=== PATIENT | female | born 1970 | race Caucasian/White ===

== ENCOUNTER 2018-04-30 10:39 | Inpatient (IN) | payer BC, OTHER ==
[~2018-04-30] VITALS: Ht 152.4 cm; Wt 46.1 kg
[~2018-04-30 10:39] MED LIST: ATEN100T; ATEN50TA41 PO; ATOR10TA PO; BUPR150T73 PO; BUPR174T; FURO20TA3 PO; GABA100C PO; INDA1.25; INSU100C5; INSU100C5 SQ-INSULIN; INSU100V8; LISI-167; LISI-170 PO; METO10TA2 PO; PANT40TA5 PO; SERT50TA28 PO
--- NOTE | 2018-04-30 10:53 | NUR ---
FSBS 159 IN TRIAGE
[2018-04-30] MEDS ORDERED: SODIUM CHLORIDE 0.9% 1,000 ML IV ONE ×2 (11:12→13:50)
--- NOTE | 2018-04-30 11:19 | NUR ---
AMBULATORY TO ED. C/O RUQ STARTED 299 TODAY, DRY HEJULES. TOOK PHENERGAN AT 299 TODAY. DENIES URINARY SX. LAST ORAL INTAKE: 1899 LAST NOC. LAST BM YESTERDAY. SPOUSE IN ROOM. PT DRY CADLERONNG, HAS EMPTY EMESIS BAG. SIDE RAILS UP X 1, CALL LIGHT W/IN REACH. Addendum: 04/30/18 at 1142 by MAGNOLIA PT NOTIFIED OF NEED FOR URINE SPECIMEN.
[2018-04-30] MEDS ORDERED: PROMETHAZINE 25 MG/ML, 1ML ONE (11:23)
[2018-04-30] MEDS ORDERED: SODIUM CHLORIDE FLUSH 10ML SYR IVF ONE (11:30)
[2018-04-30] MEDS ORDERED: SODIUM CHLORIDE 0.9% 1,000ML IVBOLUS ONE (11:30)
[2018-04-30] MEDS ORDERED: PROMETHAZINE 25 MG/ML, 1ML IM ONE (11:30)
--- NOTE | 2018-04-30 11:41 | NUR ---
EKG DONE. IV ATTEMPTED X 2
--- NOTE | 2018-04-30 11:44 | NUR ---
IV ASSISTANCE REQUESTED.
[2018-04-30 12:12] LABS: BASOPHILS # (AUTO) 0.12 x10^3/uL (0-0.1); BASOPHILS % (AUTO) 1 % (0-1); EOSINOPHILS # (AUTO) 0.39 x10^3/uL (0-0.4); EOSINOPHILS % (AUTO) 4 % (1-7); LYMPHOCYTES # (AUTO) 1.34 x10^3/uL (1-3.4); LYMPHOCYTES % (AUTO) 13 % (22-44); MD NO; MEAN CORPUSCULAR HEMOGLOBIN 30.2 pg (27.0-34.8); MEAN CORPUSCULAR HGB CONC 33.7 g/dL (32.4-35.8); MEAN CORPUSCULAR VOLUME 89.8 fL (80-100); MEAN PLATELET VOLUME 8.8 fL (7.4-10.4); MONOCYTES # (AUTO) 0.76 x10^3/uL (0.2-0.8); MONOCYTES % (AUTO) 7 % (2-9); NEUTROPHILS # (AUTO) 8.08 x10^3/uL (1.8-6.8); NEUTROPHILS % (AUTO) 76 % (42-75); PLATELET COUNT 231 x10^3/uL (130-400); RED CELL DISTRIBUTION WIDTH 14.3 % (9.6-15.2)
[2018-04-30] MEDS ORDERED: KETOROLAC 30 MG/1 ML ONE (12:19)
[2018-04-30 12:21] LABS: ALANINE AMINOTRANSFERASE 27 U/L (12-78); ALBUMIN 4.2 g/dL (3.4-5.0); ANION GAP 7 mmol/L (5-15); CALCIUM 9.4 mg/dL (8.5-10.1); CHLORIDE 107 mmol/L (98-107)
[2018-04-30 12:24] LABS: ALKALINE PHOSPHATASE 102 U/L (45-117); BILIRUBIN,TOTAL 0.5 mg/dL (0.2-1.0); TOTAL PROTEIN 7.5 g/dL (6.4-8.2)
[2018-04-30] MEDS ORDERED: KETOROLAC 30 MG/1 ML IVPush ONE (12:30)
--- NOTE | 2018-04-30 12:50 | NUR ---
PT REPORTS MINIMAL IMPROVEMENT IN NAUSEA - NOTICEABLE ABSENCE OF DRY HEAVING NOTED. PT REFUSED PRIOR ORDER OF TORADOL. STATES "THEY USUALLY GIVE ME MORPHINE" (AT [facility]).
--- NOTE | 2018-04-30 12:59 | NUR ---
AMBULATORY TO & FROM BR W/OUT INCIDENT, ACCOMPANIED BY SPOUSE. BRIGHT YELLOW URINE SPECIMEN PROVIDED BY PT. PT STATES SHE HAD AN EYE EXAM YESTERDAY, WAS GIVEN A MEDICATION THAT TURNED HER URINE BRIGHT YELLOW.
[2018-04-30] MEDS ORDERED: ONDANSETRON 2MG/ML, 2ML ONE (13:07)
[2018-04-30] MEDS ORDERED: MORPHINE SULFATE 4 MG/ML, 1ML ONE (13:07)
--- NOTE | 2018-04-30 13:15 | NUR ---
FIRST LITER NS INFUSED; 2ND LITER HUNG, RATE 250ML/HR; ZOFRAN AND MORPHINE GIVEN PER EMAR. IV SITE PATENT. PT RESTING ON BED W/ SIDE RAILS UP X2, CALL LIGHT W/IN REACH. SPOUSE & DAUGHTER IN ROOM.
--- NOTE | 2018-04-30 13:18 | NUR ---
O2 APPLIED 1LNC FOR DECREASED O2 SAT. WILL TITRATE.
[2018-04-30 13:29] LABS: ACETONE, SERUM Trace (10mg/dL) mg/dL (Negative)
[2018-04-30] MEDS ORDERED: ONDANSETRON 2MG/ML, 2ML IVPush ONE (13:30)
[2018-04-30] MEDS ORDERED: MORPHINE SULFATE 4 MG/ML, 1ML IVPush PRN (13:30)
[2018-04-30 13:33] LABS: MICROSCOPIC INDICATED
[2018-04-30 13:37] LABS: CULTURE INDICATED? YES
[2018-04-30] MEDS ORDERED: CEFTRIAXONE PMX 1GM/50ML 50 ML IV ONE (14:00)
[2018-04-30] MEDS ORDERED: SODIUM CHLORIDE FLUSH 10ML SYR IVF PRN (14:00)
--- NOTE | 2018-04-30 14:18 | NUR ---
PT VOMITED YELLOW FLUID INTO EMESIS BAG. C/O CONTINUING NAUSEA. IV INFUSING; SITE PATENT. PT TO BE ADMITTED.
--- NOTE | 2018-04-30 14:26 | NUR ---
PT REPORT TO INOCENCIO SCOTT FOR ROOM 366
[2018-04-30] MEDS ORDERED: LABETALOL 5MG/ML, 20ML IVPush PRN (15:00)
[2018-04-30] MEDS ORDERED: POLYETHYLENE GLYCOL 17 GM PACKET PO PRN (15:00)
[2018-04-30] MEDS ORDERED: DEXTROSE 50%, 50ML SYRINGE IVPush PRN (15:00)
[2018-04-30] MEDS ORDERED: GLUCAGON 1 MG IM PRN (15:00)
[2018-04-30] MEDS ORDERED: BISACODYL 10 MG SUPP PR PRN (15:00)
[2018-04-30] MEDS ORDERED: hydrALAzine 20 MG/ML, 1ML IVPush PRN (15:00)
[2018-04-30] MEDS ORDERED: ACETAMINOPHEN 325 MG TABLET PO PRN (15:00)
[2018-04-30] MEDS ORDERED: DOCUSATE 100 MG CAPSULE PO PRN (15:00)
[2018-04-30] MEDS: HEPARIN 5,000 UNITS/ML, 1ML SQ SCH ×2 (15:28→23:29)
[2018-04-30] MEDS: SERTRALINE 50MG TABLET PO SCH ×2 (15:29→21:00)
[2018-04-30] MEDS: GABAPENTIN 100 MG CAPSULE PO SCH ×2 (15:29→21:00)
[2018-04-30] MEDS ORDERED: CEFTRIAXONE PMX 1GM/50ML 50 ML IV SCH (15:30)
[2018-04-30] MEDS ORDERED: LABETALOL 5 MG/ML SYRINGE IVPush PRN (15:30)
[2018-04-30 15:41] LABS: TROPONIN I < 0.015 ng/mL (0.000-0.045)
[2018-04-30 15:45] LABS: HEMOGLOBIN A1C 7.5 % (4.2-6.3)
[2018-04-30 15:59] VITALS: BP 191/94
[2018-04-30] MEDS ORDERED: METOCLOPRAMIDE 10MG TABLET PO SCH (16:00)
[2018-04-30 16:04] LABS: THYROID STIMULATING HORMONE 2.15 mIU/L (0.358-3.740)
[2018-04-30 16:05] VITALS: BP 189/88
[2018-04-30 17:24] VITALS: BP 182/82
[2018-04-30] MEDS: PROMETHAZINE 25 MG/ML, 1ML IM PRN ×3 (17:30→23:36)
[2018-04-30] MEDS: INSULIN LISPRO 100 UNITS/ML, PEN SQ-INSULIN SCH ×2 (17:36→19:55)
[2018-04-30] MEDS: morphine SULFATE 10 MG/ML, 1ML IVPush PRN ×2 (19:42→23:29)
[2018-04-30] MEDS: ONDANSETRON ODT 4 MG PO PRN (19:42)
[2018-04-30] MEDS: SODIUM CHLORIDE FLUSH 10ML SYR IVF SCH (20:38)
[2018-04-30] MEDS: SODIUM CHLORIDE 0.9% 1,000 ML IV SCH (20:38)
[2018-04-30 20:49] VITALS: BP 172/83
[2018-04-30] MEDS: BUPROPION SR 150 MG TABLET PO SCH (21:00)
[2018-04-30 22:17] VITALS: BP 127/55
[2018-04-30] MEDS: ATORVASTATIN 10 MG TABLET PO SCH (22:24)
[2018-04-30 22:44] VITALS: BP 143/76
[2018-05-01 01:31] VITALS: BP 144/73
[2018-05-01] MEDS: PROMETHAZINE 25 MG/ML, 1ML IM PRN ×2 (02:38→05:36)
[2018-05-01] MEDS: morphine SULFATE 10 MG/ML, 1ML IVPush PRN ×5 (02:39→20:18)
[2018-05-01] MEDS: GABAPENTIN 100 MG CAPSULE PO SCH ×4 (05:35→20:18)
[2018-05-01 05:47] LABS: BASOPHILS # (AUTO) 0.04 x10^3/uL (0-0.1); BASOPHILS % (AUTO) 0 % (0-1); EOSINOPHILS % (AUTO) 0 % (1-7); LYMPHOCYTES # (AUTO) 0.48 x10^3/uL (1-3.4); LYMPHOCYTES % (AUTO) 5 % (22-44); MD NO; MEAN CORPUSCULAR HEMOGLOBIN 30.4 pg (27.0-34.8); MEAN CORPUSCULAR HGB CONC 34.2 g/dL (32.4-35.8); MEAN CORPUSCULAR VOLUME 88.9 fL (80-100); MEAN PLATELET VOLUME 9.4 fL (7.4-10.4); MONOCYTES # (AUTO) 0.45 x10^3/uL (0.2-0.8); MONOCYTES % (AUTO) 5 % (2-9); NEUTROPHILS # (AUTO) 7.98 x10^3/uL (1.8-6.8); NEUTROPHILS % (AUTO) 89 % (42-75); PLATELET COUNT 225 x10^3/uL (130-400); RED BLOOD COUNT 3.96 x10^6/uL (3.82-5.3); RED CELL DISTRIBUTION WIDTH 14.3 % (9.6-15.2)
[2018-05-01 05:56] LABS: ANION GAP 10 mmol/L (5-15); CALCIUM 8.7 mg/dL (8.5-10.1); CHLORIDE 108 mmol/L (98-107)
[2018-05-01 06:00] LABS: ALANINE AMINOTRANSFERASE 388 U/L (12-78); ALKALINE PHOSPHATASE 142 U/L (45-117); BILIRUBIN,TOTAL 0.5 mg/dL (0.2-1.0); CREATININE 1.51 mg/dL (0.55-1.02); TOTAL PROTEIN 7.1 g/dL (6.4-8.2)
[2018-05-01] MEDS: INSULIN LISPRO 100 UNITS/ML, PEN SQ-INSULIN SCH ×4 (07:00→20:19)
[2018-05-01 07:15] VITALS: BP 109/61
[2018-05-01] MEDS ORDERED: PANTOPRAZOLE 40 MG IV IVPush SCH (07:30)
[2018-05-01] MEDS: HEPARIN 5,000 UNITS/ML, 1ML SQ SCH ×2 (08:52→17:36)
[2018-05-01] MEDS: SERTRALINE 50MG TABLET PO SCH ×3 (08:52→20:18)
[2018-05-01] MEDS: ATENOLOL 50 MG TABLET PO SCH (08:52)
[2018-05-01] MEDS: BUPROPION SR 150 MG TABLET PO SCH ×2 (08:52→20:18)
[2018-05-01] MEDS: LISINOPRIL 20 MG TABLET PO SCH (08:52)
[2018-05-01] MEDS ORDERED: CEFTRIAXONE 1,000 MG IV SCH (09:00)
[2018-05-01] MEDS: SODIUM CHLORIDE 0.9% 1,000 ML IV SCH (10:51)
[2018-05-01] MEDS: SODIUM CHLORIDE FLUSH 10ML SYR IVF SCH ×2 (10:51→20:19)
[2018-05-01 13:30] VITALS: BP 129/70
[2018-05-01 20:00] VITALS: BP 138/66
[2018-05-01] MEDS: ATORVASTATIN 10 MG TABLET PO SCH (20:18)
[2018-05-02] MEDS: SODIUM CHLORIDE 0.9% 1,000 ML IV SCH ×2 (01:03→22:40)
[2018-05-02 01:40] VITALS: BP 146/66
[2018-05-02] MEDS: HEPARIN 5,000 UNITS/ML, 1ML SQ SCH ×3 (02:23→16:54)
[2018-05-02 04:45] VITALS: BP 167/87
[2018-05-02] MEDS: DEXTROSE 4 GM TAB.CHEW PO PRN ×2 (04:56→05:15)
[2018-05-02 05:13] LABS: CALCIUM 8.7 mg/dL (8.5-10.1); CHLORIDE 111 mmol/L (98-107)
[2018-05-02 05:19] LABS: ALANINE AMINOTRANSFERASE 236 U/L (12-78); ALBUMIN 3.7 g/dL (3.4-5.0); ALKALINE PHOSPHATASE 123 U/L (45-117); ANION GAP 6 mmol/L (5-15); BILIRUBIN,TOTAL 0.3 mg/dL (0.2-1.0); TOTAL PROTEIN 6.8 g/dL (6.4-8.2)
[2018-05-02] MEDS: PANTOPROZOLE 40MG TABLET PO SCH (06:03)
[2018-05-02] MEDS: GABAPENTIN 100 MG CAPSULE PO SCH ×4 (06:03→21:00)
[2018-05-02] MEDS: morphine SULFATE 10 MG/ML, 1ML IVPush PRN (06:17)
[2018-05-02] MEDS ORDERED: POTASSIUM CHLORIDE 40 MEQ in SODIUM CHLORIDE 0.9% 500 ML IV ONE (06:30)
[2018-05-02] MEDS: PROMETHAZINE 25 MG/ML, 1ML IM PRN ×4 (06:55→21:28)
[2018-05-02] MEDS: INSULIN LISPRO 100 UNITS/ML, PEN SQ-INSULIN SCH ×4 (07:00→21:00)
[2018-05-02] MEDS: ONDANSETRON ODT 4 MG PO PRN (07:49)
[2018-05-02] MEDS ORDERED: PROMETHAZINE 25 MG/ML, 1ML IM ONE (08:30)
[2018-05-02 08:41] VITALS: BP 205/93
[2018-05-02] MEDS: LISINOPRIL 20 MG TABLET PO SCH (09:00)
[2018-05-02] MEDS: BUPROPION SR 150 MG TABLET PO SCH ×2 (09:00→21:00)
[2018-05-02] MEDS: ATENOLOL 50 MG TABLET PO SCH (09:00)
[2018-05-02] MEDS: SERTRALINE 50MG TABLET PO SCH ×3 (09:00→21:00)
[2018-05-02] MEDS: SODIUM CHLORIDE FLUSH 10ML SYR IVF SCH ×2 (11:40→20:51)
[2018-05-02 14:15] VITALS: BP 211/107
[2018-05-02] MEDS: CALCIUM CARBONATE 500 MG TAB.CHEW PO PRN ×2 (14:38→21:25)
[2018-05-02] MEDS ORDERED: PROCHLORPERAZINE 5 MG/ML, 2ML IV PRN (16:30)
[2018-05-02 18:49] VITALS: BP 167/78
[2018-05-02] MEDS: ATORVASTATIN 10 MG TABLET PO SCH (21:00)
[2018-05-03] MEDS: HEPARIN 5,000 UNITS/ML, 1ML SQ SCH ×3 (02:00→17:14)
[2018-05-03 02:28] VITALS: BP 150/67
[2018-05-03] MEDS: PROMETHAZINE 25 MG/ML, 1ML IM PRN ×6 (03:20→23:43)
[2018-05-03] MEDS: CALCIUM CARBONATE 500 MG TAB.CHEW PO PRN ×3 (03:30→20:25)
[2018-05-03] MEDS: PANTOPROZOLE 40MG TABLET PO SCH (05:22)
[2018-05-03] MEDS ORDERED: MAALOX/HYOSCYAMINE/LIDOCAINE 45 ML BTL PO ONE ×3 (06:00→23:30)
[2018-05-03] MEDS: GABAPENTIN 100 MG CAPSULE PO SCH ×4 (06:00→21:00)
[2018-05-03 06:24] LABS: ALBUMIN 3.6 g/dL (3.4-5.0); ANION GAP 7 mmol/L (5-15); CALCIUM 9.1 mg/dL (8.5-10.1); CHLORIDE 109 mmol/L (98-107)
[2018-05-03 06:27] LABS: ALANINE AMINOTRANSFERASE 142 U/L (12-78); ALKALINE PHOSPHATASE 111 U/L (45-117); BILIRUBIN,TOTAL 0.8 mg/dL (0.2-1.0); CREATININE 1.38 mg/dL (0.55-1.02); TOTAL PROTEIN 6.4 g/dL (6.4-8.2)
[2018-05-03] MEDS ORDERED: POTASSIUM CHLORIDE 60 MEQ in SODIUM CHLORIDE 0.9% 500 ML IV ONE (06:30)
[2018-05-03] MEDS: INSULIN LISPRO 100 UNITS/ML, PEN SQ-INSULIN SCH ×4 (07:00→21:00)
[2018-05-03 07:37] VITALS: BP 149/68
[2018-05-03] MEDS: ATENOLOL 50 MG TABLET PO SCH (08:14)
[2018-05-03] MEDS: BUPROPION SR 150 MG TABLET PO SCH ×2 (08:14→21:00)
[2018-05-03] MEDS: SERTRALINE 50MG TABLET PO SCH ×3 (08:14→21:00)
[2018-05-03] MEDS: LISINOPRIL 20 MG TABLET PO SCH (08:15)
[2018-05-03] MEDS: METOCLOPRAMIDE 10MG TABLET PO PRN ×3 (08:40→23:41)
[2018-05-03] MEDS: SODIUM CHLORIDE FLUSH 10ML SYR IVF SCH (09:22)
[2018-05-03 14:39] VITALS: BP 140/65
[2018-05-03] MEDS: SODIUM CHLORIDE 0.9% 1,000 ML IV SCH (16:49)
[2018-05-03 18:56] VITALS: BP 186/90
[2018-05-03] MEDS: ATORVASTATIN 10 MG TABLET PO SCH (21:00)
[2018-05-04 00:55] VITALS: BP 191/98
[2018-05-04] MEDS: SODIUM CHLORIDE FLUSH 10ML SYR IVF SCH ×2 (00:59→08:19)
[2018-05-04] MEDS: HEPARIN 5,000 UNITS/ML, 1ML SQ SCH ×2 (02:00→08:20)
[2018-05-04] MEDS: GABAPENTIN 100 MG CAPSULE PO SCH ×3 (06:29→16:33)
[2018-05-04] MEDS: PANTOPROZOLE 40MG TABLET PO SCH (06:29)
[2018-05-04] MEDS: METOCLOPRAMIDE 10MG TABLET PO PRN (06:29)
[2018-05-04 07:57] VITALS: BP 147/77
[2018-05-04 08:00] LABS: BASOPHILS # (AUTO) 0.09 x10^3/uL (0-0.1); BASOPHILS % (AUTO) 1 % (0-1); EOSINOPHILS # (AUTO) 0.03 x10^3/uL (0-0.4); EOSINOPHILS % (AUTO) 0 % (1-7); LYMPHOCYTES # (AUTO) 2.07 x10^3/uL (1-3.4); LYMPHOCYTES % (AUTO) 18 % (22-44); MD NO; MEAN CORPUSCULAR HEMOGLOBIN 29.3 pg (27.0-34.8); MEAN CORPUSCULAR HGB CONC 32.8 g/dL (32.4-35.8); MEAN CORPUSCULAR VOLUME 89.6 fL (80-100); MEAN PLATELET VOLUME 8.8 fL (7.4-10.4); MONOCYTES # (AUTO) 1.06 x10^3/uL (0.2-0.8); MONOCYTES % (AUTO) 9 % (2-9); NEUTROPHILS # (AUTO) 8.13 x10^3/uL (1.8-6.8); NEUTROPHILS % (AUTO) 72 % (42-75); PLATELET COUNT 277 x10^3/uL (130-400); RED BLOOD COUNT 4.33 x10^6/uL (3.82-5.3); RED CELL DISTRIBUTION WIDTH 14.3 % (9.6-15.2)
[2018-05-04 08:09] LABS: ALBUMIN 3.7 g/dL (3.4-5.0); ANION GAP 4 mmol/L (5-15); CALCIUM 8.9 mg/dL (8.5-10.1); CHLORIDE 110 mmol/L (98-107)
[2018-05-04] MEDS: INSULIN LISPRO 100 UNITS/ML, PEN SQ-INSULIN SCH ×3 (08:12→16:00)
[2018-05-04 08:13] LABS: ALANINE AMINOTRANSFERASE 107 U/L (12-78); ALKALINE PHOSPHATASE 111 U/L (45-117); TOTAL PROTEIN 6.5 g/dL (6.4-8.2)
[2018-05-04] MEDS: ATENOLOL 50 MG TABLET PO SCH (08:18)
[2018-05-04] MEDS: SERTRALINE 50MG TABLET PO SCH ×2 (08:18→16:33)
[2018-05-04] MEDS: BUPROPION SR 150 MG TABLET PO SCH (08:18)
[2018-05-04] MEDS ORDERED: FUROSEMIDE 20 MG TABLET PO SCH (09:00)
[2018-05-04] MEDS ORDERED: LISINOPRIL 20 MG TABLET PO SCH (09:00)
[2018-05-04] MEDS: SODIUM CHLORIDE 0.9% 1,000 ML IV SCH (11:37)
[2018-05-04] MEDS ORDERED: METOCLOPRAMIDE 10MG TABLET PO PRN (12:30)
[2018-05-04 13:55] VITALS: BP 148/75
[2018-05-04] MEDS ORDERED: LISI-170 PO (16:01)
== END 2018-05-04 16:55 | disposition home or self-care (01) | DRG 74 ==
LOC: ED 12:16 → 3NE 14:58 → ED 15:23 → 3NE 15:25 → 4EST 18:37 → DCLOUNGE 05-04 16:45
PROVIDERS: ADMIT Hospitalist; ATTEND Hospitalist
DX: E10.43 Type 1 diabetes mellitus with diabetic autonomic (poly)neuropathy (principal); I13.0 Hypertensive heart and chronic kidney disease with heart failure and stage 1 through stage 4 chronic kidney disease, or unspecified chronic kidney disease; N17.9 Acute kidney failure, unspecified; E10.22 Type 1 diabetes mellitus with diabetic chronic kidney disease; E10.65 Type 1 diabetes mellitus with hyperglycemia; E86.0 Dehydration; R11.2 Nausea with vomiting, unspecified; F12.90 Cannabis use, unspecified, uncomplicated; I16.0 Hypertensive urgency; I50.9 Heart failure, unspecified; K31.84 Gastroparesis; N18.3 Chronic kidney disease, stage 3 (moderate); N30.90 Cystitis, unspecified without hematuria; E10.40 Type 1 diabetes mellitus with diabetic neuropathy, unspecified; Z83.3 Family history of diabetes mellitus; Z96.41 Presence of insulin pump (external) (internal); Z90.49 Acquired absence of other specified parts of digestive tract; Z87.891 Personal history of nicotine dependence
CPT/HCPCS: 36415; 76700; 80053; 80074; 81001; 82010; 82800; 82947; 82962; 83036; 83690; 83735; 84100; 84443; 84484; 84702; 85025; 87086; 93005; 96361; 96372; 96374; 96375; G0378; J0696; J1644; J2405; J2550; J3480; Q0162; C9113; J0360; J0780; J1610; J2270; J7030; J7040

== ENCOUNTER 2018-08-09 23:30 | Inpatient (IN) | payer OTHER ==
[~2018-08-09] VITALS: Ht 152.4 cm; Wt 63.0 kg
--- NOTE | 2018-08-09 23:37 | NUR ---
Fsbg of 113 in triage. Pt shoving own finger down throat to force emesis. "i just need to feel better... give me some medicine.
[2018-08-09] MEDS ORDERED: PROMETHAZINE 25 MG/ML, 1ML ONE (23:47)
--- NOTE | 2018-08-09 23:55 | NUR ---
PT HERE FOR N/V X SEVERAL HOURS. PT MEDICATED WITH PHENERGAN. PT HAS FINGERS DOWN THROAT TO INDUCE VOMITING TO "FEEL BETTER". SPOUSE AT BEDSIDE. CALL LIGHT IN REACH
[2018-08-10] VITALS (9 sets, daily range): BP systolic 107–183; BP diastolic 63–91
[2018-08-10] MEDS ORDERED: PROMETHAZINE 25 MG/ML, 1ML IM ONE
[2018-08-10 00:25] LABS: BASOPHILS # (AUTO) 0.09 x10^3/uL (0-0.1); BASOPHILS % (AUTO) 1 % (0-1); EOSINOPHILS # (AUTO) 0.35 x10^3/uL (0-0.4); EOSINOPHILS % (AUTO) 4 % (1-7); LYMPHOCYTES # (AUTO) 2.64 x10^3/uL (1-3.4); LYMPHOCYTES % (AUTO) 28 % (22-44); MD NO; MEAN CORPUSCULAR HEMOGLOBIN 29.3 pg (27.0-34.8); MEAN CORPUSCULAR HGB CONC 32.6 g/dL (32.4-35.8); MEAN CORPUSCULAR VOLUME 89.7 fL (80-100); MEAN PLATELET VOLUME 9.4 fL (7.4-10.4); MONOCYTES # (AUTO) 0.74 x10^3/uL (0.2-0.8); MONOCYTES % (AUTO) 8 % (2-9); NEUTROPHILS # (AUTO) 5.59 x10^3/uL (1.8-6.8); NEUTROPHILS % (AUTO) 59 % (42-75); PLATELET COUNT 244 x10^3/uL (130-400); RED BLOOD COUNT 4.66 x10^6/uL (3.82-5.3)
--- NOTE | 2018-08-10 00:30 | NUR ---
PTS BRIEF CHANGED. PER PT VOMITING AND CANT CONTROL BOWELS. PT STILL PUTTING FINGERS DOWN THROAT TO INDUCE VOMITING. PT EDUCATED TO STOP PLACING FINGERS DOWN THROAT BECAUSE IT WILL CAUSE HER TO KEEP VOMITING. PT REQUESTING MORE NAUSEA MEDICATION. PA NOTIFED OF PTS REQUEST.
[2018-08-10 00:36] LABS: ALANINE AMINOTRANSFERASE 479 U/L (12-78); ALBUMIN 4.4 g/dL (3.4-5.0); ANION GAP 12 mmol/L (5-15); CALCIUM 10.2 mg/dL (8.5-10.1); CHLORIDE 109 mmol/L (98-107); CREATININE 2.22 mg/dL (0.55-1.02)
[2018-08-10 00:41] LABS: ALKALINE PHOSPHATASE 173 U/L (45-117); BILIRUBIN,TOTAL 0.7 mg/dL (0.2-1.0); TOTAL PROTEIN 7.8 g/dL (6.4-8.2)
[2018-08-10] MEDS ORDERED: SODIUM CHLORIDE 0.9% 1,000ML IVBOLUS ONE (01:00)
--- NOTE | 2018-08-10 01:14 | NUR ---
REPORT TO INOCENCIO FUENTES. FLOOR READY FOR PT. AFTER IV AND MEDS.
[2018-08-10] MEDS ORDERED: METOCLOPRAMIDE 5 MG/ML, 2ML IVPush ONE (01:30)
[2018-08-10] MEDS ORDERED: MORPHINE SULFATE 4 MG/ML, 1ML IVPush PRN (01:30)
[2018-08-10] MEDS ORDERED: METOCLOPRAMIDE 5 MG/ML, 2ML ONE (01:34)
[2018-08-10] MEDS ORDERED: MORPHINE SULFATE 4 MG/ML, 1ML ONE (01:35)
[2018-08-10] MEDS ORDERED: HYDR12.517 PO (01:44)
[2018-08-10] MEDS ORDERED: SODIUM CHLORIDE 0.9% 1,000 ML IV SCH (01:47)
[2018-08-10] MEDS ORDERED: DOCUSATE 100 MG CAPSULE PO PRN (02:00)
[2018-08-10] MEDS ORDERED: BISACODYL 10 MG SUPP PR PRN (02:00)
[2018-08-10] MEDS ORDERED: METOCLOPRAMIDE 5 MG/ML, 2ML IVPush PRN (02:00)
[2018-08-10] MEDS ORDERED: ONDANSETRON ODT 4 MG PO PRN (02:00)
[2018-08-10] MEDS ORDERED: ACETAMINOPHEN 325 MG TABLET PO PRN (02:00)
[2018-08-10] MEDS ORDERED: POTASSIUM CHLORIDE 40 MEQ in SODIUM CHLORIDE 0.9% 500 ML IV ONE (02:00)
[2018-08-10] MEDS ORDERED: hydrALAzine 20 MG/ML, 1ML IVPush PRN (02:00)
[2018-08-10] MEDS ORDERED: POLYETHYLENE GLYCOL 17 GM PACKET PO PRN (02:00)
[2018-08-10] MEDS: PROMETHAZINE 25 MG/ML, 1ML IM PRN ×4 (02:42→15:07)
[2018-08-10] MEDS: HEPARIN 5,000 UNITS/ML, 1ML SQ SCH ×3 (02:42→18:19)
[2018-08-10 02:46] LABS: FREE T4 (FREE THYROXINE) 1.13 ng/dL (0.76-1.46); THYROID STIMULATING HORMONE 3.32 mIU/L (0.358-3.740)
[2018-08-10 02:48] LABS: HEMOGLOBIN A1C 7.5 % (4.2-6.3)
[2018-08-10] MEDS: ONDANSETRON 2MG/ML, 2ML IVPush PRN ×2 (04:40→11:28)
[2018-08-10] MEDS: GABAPENTIN 100 MG CAPSULE PO SCH ×4 (06:20→21:52)
[2018-08-10] MEDS ORDERED: DICYCLOMINE 10 MG/ML, 2ML IM PRN (08:00)
[2018-08-10] MEDS: SODIUM CHLORIDE 0.45% 1,000 ML IV SCH ×2 (08:06→16:00)
[2018-08-10] MEDS: METOCLOPRAMIDE 5 MG/ML, 2ML IVPush SCH ×3 (08:07→21:51)
[2018-08-10] MEDS: PANTOPROZOLE 40MG TABLET PO SCH (08:14)
[2018-08-10] MEDS: ATENOLOL 50 MG TABLET PO SCH (08:14)
[2018-08-10] MEDS: BUPROPION SR 150 MG TABLET PO SCH ×2 (08:14→21:52)
[2018-08-10] MEDS: SERTRALINE 50MG TABLET PO SCH ×3 (08:15→21:52)
[2018-08-10] MEDS: hydrALAzine 20 MG/ML, 1ML IV PRN ×2 (09:19→13:58)
[2018-08-10] MEDS: INSULIN LISPRO 100 UNITS/ML, PEN SQ-INSULIN SCH ×4 (10:28→21:54)
[2018-08-10 12:40] LABS: HCG UR SG 1.016 (1.003-1.030); MICROSCOPIC AUTO
[2018-08-10 12:43] LABS: CULTURE INDICATED? NO
[2018-08-10 12:55] LABS: AMPHETAMINE SCREEN, URINE Negative (Negative); BARBITURATE SCREEN, URINE Negative (Negative); BENZODIAZEPINE SCREEN, URINE Negative (Negative); CANNABINOID SCREEN, URINE Positive (Negative); COCAINE SCREEN, URINE Negative (Negative); METHADONE SCREEN, URINE Negative (Negative); OPIATE SCREEN, URINE Positive (Negative)
[2018-08-10] MEDS: AMLODIPINE 5 MG TABLET PO SCH (16:06)
[2018-08-10] MEDS: METOPROLOL TARTRATE 50 MG TABLET PO SCH ×2 (16:06→18:00)
[2018-08-10] MEDS: MAALOX/HYOSCYAMINE/LIDOCAINE 45 ML BTL PO PRN (16:07)
[2018-08-10] MEDS ORDERED: METOCLOPRAMIDE 5 MG/ML, 2ML IVPush SCH (21:00)
[2018-08-10] MEDS: ATORVASTATIN 10 MG TABLET PO SCH (21:53)
[2018-08-11 00:32] VITALS: BP 126/65
[2018-08-11] MEDS: SODIUM CHLORIDE 0.45% 1,000 ML IV SCH ×3 (01:31→23:38)
[2018-08-11] MEDS: HEPARIN 5,000 UNITS/ML, 1ML SQ SCH ×3 (02:25→16:59)
[2018-08-11 06:22] LABS: CHLORIDE 104 mmol/L (98-107)
[2018-08-11] MEDS: METOPROLOL TARTRATE 50 MG TABLET PO SCH ×2 (06:22→16:56)
[2018-08-11] MEDS: GABAPENTIN 100 MG CAPSULE PO SCH ×4 (06:22→21:54)
[2018-08-11] MEDS: METOCLOPRAMIDE 5 MG/ML, 2ML IVPush SCH ×4 (06:22→21:58)
[2018-08-11 06:28] LABS: BASOPHILS # (AUTO) 0.08 x10^3/uL (0-0.1); BASOPHILS % (AUTO) 1 % (0-1); EOSINOPHILS # (AUTO) 0.01 x10^3/uL (0-0.4); EOSINOPHILS % (AUTO) 0 % (1-7); LYMPHOCYTES # (AUTO) 2.29 x10^3/uL (1-3.4); LYMPHOCYTES % (AUTO) 17 % (22-44); MD NO; MEAN CORPUSCULAR HEMOGLOBIN 28.6 pg (27.0-34.8); MEAN CORPUSCULAR HGB CONC 32.5 g/dL (32.4-35.8); MEAN CORPUSCULAR VOLUME 88.1 fL (80-100); MEAN PLATELET VOLUME 9.4 fL (7.4-10.4); MONOCYTES # (AUTO) 0.98 x10^3/uL (0.2-0.8); MONOCYTES % (AUTO) 7 % (2-9); NEUTROPHILS # (AUTO) 9.99 x10^3/uL (1.8-6.8); NEUTROPHILS % (AUTO) 75 % (42-75); PLATELET COUNT 188 x10^3/uL (130-400); RED BLOOD COUNT 3.65 x10^6/uL (3.82-5.3); RED CELL DISTRIBUTION WIDTH 14.8 % (9.6-15.2)
[2018-08-11 06:29] VITALS: BP 132/68
[2018-08-11 06:33] LABS: ALANINE AMINOTRANSFERASE 253 U/L (12-78); ALBUMIN 3.3 g/dL (3.4-5.0); ALKALINE PHOSPHATASE 116 U/L (45-117); ANION GAP 8 mmol/L (5-15); BILIRUBIN,TOTAL 0.5 mg/dL (0.2-1.0); CALCIUM 8.4 mg/dL (8.5-10.1); CHOLESTEROL, TOTAL 124 mg/dL (140-239); CREATININE 2.07 mg/dL (0.55-1.02); HDL CHOL % 51 % (28-40); HDL CHOLESTEROL (DIRECT) 63 mg/dL (40-60); LDL CHOLESTEROL,CALCULATED 44 mg/dL (54-169); LDL/HDL RATIO 0.7 (0.5-3.0); TOTAL PROTEIN 5.9 g/dL (6.4-8.2); TRIGLYCERIDES 85 mg/dL (50-200); VLDL CHOLESTEROL 17 mg/dL (0-25)
[2018-08-11] MEDS: INSULIN LISPRO 100 UNITS/ML, PEN SQ-INSULIN SCH ×4 (07:51→21:54)
[2018-08-11] MEDS: PANTOPROZOLE 40MG TABLET PO SCH (08:17)
[2018-08-11] MEDS: ATENOLOL 50 MG TABLET PO SCH (08:17)
[2018-08-11] MEDS: BUPROPION SR 150 MG TABLET PO SCH ×2 (08:17→21:54)
[2018-08-11] MEDS: AMLODIPINE 5 MG TABLET PO SCH (08:17)
[2018-08-11] MEDS: SERTRALINE 50MG TABLET PO SCH ×3 (08:18→21:54)
[2018-08-11] MEDS: PROMETHAZINE 25 MG/ML, 1ML IM PRN ×2 (13:08→20:56)
[2018-08-11 14:00] VITALS: BP 128/68
[2018-08-11 19:41] VITALS: BP 174/87
[2018-08-11] MEDS: hydrALAzine 20 MG/ML, 1ML IV PRN (20:00)
[2018-08-11] MEDS: ATORVASTATIN 10 MG TABLET PO SCH (21:54)
[2018-08-12 00:40] VITALS: BP 173/87
[2018-08-12] MEDS: HEPARIN 5,000 UNITS/ML, 1ML SQ SCH ×3 (02:00→17:01)
[2018-08-12] MEDS: PROMETHAZINE 25 MG/ML, 1ML IM PRN ×2 (02:14→08:02)
[2018-08-12] MEDS: MAALOX/HYOSCYAMINE/LIDOCAINE 45 ML BTL PO PRN (02:14)
[2018-08-12] MEDS: hydrALAzine 20 MG/ML, 1ML IV PRN (04:27)
[2018-08-12] MEDS: METOCLOPRAMIDE 5 MG/ML, 2ML IVPush SCH ×4 (04:27→21:43)
[2018-08-12] MEDS: METOPROLOL TARTRATE 50 MG TABLET PO SCH ×2 (06:17→17:02)
[2018-08-12] MEDS: GABAPENTIN 100 MG CAPSULE PO SCH ×4 (06:17→21:33)
[2018-08-12] MEDS: SODIUM CHLORIDE 0.45% 1,000 ML IV SCH ×2 (06:19→15:00)
[2018-08-12 06:20] LABS: BASOPHILS # (AUTO) 0.08 x10^3/uL (0-0.1); BASOPHILS % (AUTO) 1 % (0-1); EOSINOPHILS % (AUTO) 0 % (1-7); LYMPHOCYTES # (AUTO) 1.33 x10^3/uL (1-3.4); LYMPHOCYTES % (AUTO) 10 % (22-44); MD NO; MEAN CORPUSCULAR HEMOGLOBIN 29.4 pg (27.0-34.8); MEAN CORPUSCULAR HGB CONC 32.8 g/dL (32.4-35.8); MEAN CORPUSCULAR VOLUME 89.7 fL (80-100); MEAN PLATELET VOLUME 9.8 fL (7.4-10.4); MONOCYTES # (AUTO) 0.78 x10^3/uL (0.2-0.8); MONOCYTES % (AUTO) 6 % (2-9); NEUTROPHILS # (AUTO) 10.57 x10^3/uL (1.8-6.8); NEUTROPHILS % (AUTO) 83 % (42-75); PLATELET COUNT 250 x10^3/uL (130-400); RED BLOOD COUNT 4.68 x10^6/uL (3.82-5.3); RED CELL DISTRIBUTION WIDTH 15.1 % (9.6-15.2)
[2018-08-12 06:23] LABS: ALANINE AMINOTRANSFERASE 233 U/L (12-78); ALBUMIN 3.7 g/dL (3.4-5.0); ANION GAP 13 mmol/L (5-15); CALCIUM 8.9 mg/dL (8.5-10.1); CHLORIDE 102 mmol/L (98-107); CREATININE 1.48 mg/dL (0.55-1.02)
[2018-08-12 06:26] LABS: ALKALINE PHOSPHATASE 144 U/L (45-117); BILIRUBIN,TOTAL 0.7 mg/dL (0.2-1.0); TOTAL PROTEIN 6.9 g/dL (6.4-8.2)
[2018-08-12] MEDS: INSULIN LISPRO 100 UNITS/ML, PEN SQ-INSULIN SCH ×4 (07:00→21:36)
[2018-08-12] MEDS: PANTOPROZOLE 40MG TABLET PO SCH (08:02)
[2018-08-12] MEDS: SERTRALINE 50MG TABLET PO SCH ×3 (08:02→21:34)
[2018-08-12] MEDS: ATENOLOL 50 MG TABLET PO SCH (08:02)
[2018-08-12] MEDS: AMLODIPINE 5 MG TABLET PO SCH (08:02)
[2018-08-12] MEDS: BUPROPION SR 150 MG TABLET PO SCH ×2 (08:02→21:33)
[2018-08-12 08:10] VITALS: BP 114/62
[2018-08-12 09:39] VITALS: BP 120/64
[2018-08-12 14:56] VITALS: BP 140/68
[2018-08-12 16:50] VITALS: BP 124/65
[2018-08-12 19:39] VITALS: BP 124/68
[2018-08-12] MEDS: ATORVASTATIN 10 MG TABLET PO SCH (21:33)
[2018-08-13 00:42] VITALS: BP 128/85
[2018-08-13] MEDS: SODIUM CHLORIDE 0.45% 1,000 ML IV SCH (00:50)
[2018-08-13] MEDS: HEPARIN 5,000 UNITS/ML, 1ML SQ SCH (02:44)
[2018-08-13] MEDS: METOCLOPRAMIDE 5 MG/ML, 2ML IVPush SCH (03:59)
[2018-08-13] MEDS: GABAPENTIN 100 MG CAPSULE PO SCH (06:03)
[2018-08-13] MEDS: METOPROLOL TARTRATE 50 MG TABLET PO SCH (06:03)
[2018-08-13 06:06] LABS: ANION GAP 6 mmol/L (5-15); CALCIUM 8.2 mg/dL (8.5-10.1); CHLORIDE 104 mmol/L (98-107)
[2018-08-13 06:07] LABS: CREATININE 2.16 mg/dL (0.55-1.02)
[2018-08-13 06:52] VITALS: BP 126/65
[2018-08-13] MEDS: AMLODIPINE 5 MG TABLET PO SCH (07:48)
[2018-08-13] MEDS: PANTOPROZOLE 40MG TABLET PO SCH (07:49)
[2018-08-13] MEDS: SERTRALINE 50MG TABLET PO SCH (07:49)
[2018-08-13] MEDS: BUPROPION SR 150 MG TABLET PO SCH (07:49)
[2018-08-13] MEDS: ATENOLOL 50 MG TABLET PO SCH (07:49)
[2018-08-13] MEDS: INSULIN LISPRO 100 UNITS/ML, PEN SQ-INSULIN SCH (08:23)
[2018-08-13] MEDS ORDERED: AMLO-150 PO (09:29)
[2018-08-13] MEDS ORDERED: Maalox/Hyoscyamine/Lidocaine PO (09:29)
[2018-08-13] MEDS ORDERED: ONDA4TAB13 SL (09:29)
[2018-08-13] MEDS ORDERED: TRAM50TA2 PO (09:29)
== END 2018-08-13 10:25 | disposition home or self-care (01) | DRG 73 ==
LOC: ED 08-10 00:50 → EDIP 08-10 00:55 → 3NE 08-10 02:13
PROVIDERS: ADMIT Internal Medicine; ATTEND Internal Medicine
DX: E11.43 Type 2 diabetes mellitus with diabetic autonomic (poly)neuropathy (principal); N17.0 Acute kidney failure with tubular necrosis; I13.0 Hypertensive heart and chronic kidney disease with heart failure and stage 1 through stage 4 chronic kidney disease, or unspecified chronic kidney disease; E11.65 Type 2 diabetes mellitus with hyperglycemia; E11.22 Type 2 diabetes mellitus with diabetic chronic kidney disease; E87.6 Hypokalemia; E86.0 Dehydration; D72.829 Elevated white blood cell count, unspecified; F12.10 Cannabis abuse, uncomplicated; I50.9 Heart failure, unspecified; K31.84 Gastroparesis; N18.3 Chronic kidney disease, stage 3 (moderate); Z79.4 Long term (current) use of insulin; Z83.3 Family history of diabetes mellitus; Z87.891 Personal history of nicotine dependence; Z90.49 Acquired absence of other specified parts of digestive tract; Z88.8 Allergy status to other drugs, medicaments and biological substances
CPT/HCPCS: 36415; 71045; 74176; 76700; 80048; 80053; 80061; 80074; 80307; 81001; 81025; 82962; 83036; 83690; 83735; 84100; 84439; 84443; 85025; 96372; 96374; 96375; G0378; J1644; J2405; J2550; J3480; J0360; J0500; J1815; J2270; J2765; J7030; J7040

== ENCOUNTER 2019-02-02 03:04 | Inpatient (IN) | payer OTHER ==
[~2019-02-02] VITALS: Ht 152.4 cm; Wt 53.3 kg
[~2019-02-02 03:04] MED LIST changes: +AMLO-150 PO; +ATEN100T PO; +CEFD300C37 PO; +FLUC200T PO; +HYDR12.517 PO; +Maalox/Hyoscyamine/Lidocaine PO; +ONDA4TAB13 SL; +TRAM50TA2 PO
[2019-02-02] MEDS ORDERED: SODIUM CHLORIDE 0.9% 1,000ML IVBOLUS ONE (03:30)
[2019-02-02] MEDS ORDERED: ONDANSETRON 2MG/ML, 2ML IVPush ONE (03:30)
[2019-02-02] MEDS ORDERED: PROMETHAZINE 25 MG/ML, 1ML IM ONE (03:30)
[2019-02-02] MEDS ORDERED: MORPHINE SULFATE 4 MG/ML, 1ML IVPush PRN (03:30)
[2019-02-02] MEDS ORDERED: PROMETHAZINE 25 MG/ML, 1ML ONE (03:38)
[2019-02-02] MEDS ORDERED: MORPHINE SULFATE 4 MG/ML, 1ML ONE ×2 (03:38→19:59)
[2019-02-02] MEDS ORDERED: ONDANSETRON 2MG/ML, 2ML ONE (03:38)
[2019-02-02 03:42] LABS: BASOPHILS # (AUTO) 0.02 x10^3/uL (0-0.1); BASOPHILS % (AUTO) 0 % (0-1); EOSINOPHILS # (AUTO) 0.15 x10^3/uL (0-0.4); EOSINOPHILS % (AUTO) 1 % (1-7); FIO2 ROOM AIR %; LYMPHOCYTES # (AUTO) 1.48 x10^3/uL (1-3.4); LYMPHOCYTES % (AUTO) 13 % (22-44); MD NO; MEAN CORPUSCULAR HEMOGLOBIN 29.7 pg (27.0-34.8); MEAN CORPUSCULAR HGB CONC 32.9 g/dL (32.4-35.8); MEAN CORPUSCULAR VOLUME 90.3 fL (80-100); MEAN PLATELET VOLUME 9.8 fL (7.4-10.4); MONOCYTES # (AUTO) 0.68 x10^3/uL (0.2-0.8); MONOCYTES % (AUTO) 6 % (2-9); NEUTROPHILS # (AUTO) 9.16 x10^3/uL (1.8-6.8); NEUTROPHILS % (AUTO) 80 % (42-75); PLATELET COUNT 301 x10^3/uL (130-400); RED CELL DISTRIBUTION WIDTH 14.6 % (9.6-15.2)
[2019-02-02 03:46] LABS: ACETONE, SERUM Moderate(40mg/dL) mg/dL (Negative)
--- NOTE | 2019-02-02 03:46 | NUR ---
PT MEDICATED PER MAR
[2019-02-02 03:48] LABS: ALANINE AMINOTRANSFERASE 35 U/L (12-78); ALBUMIN 4.3 g/dL (3.4-5.0); ANION GAP 11 mmol/L (5-15); CHLORIDE 107 mmol/L (98-107); CREATININE 1.95 mg/dL (0.55-1.02)
[2019-02-02 03:52] LABS: ALKALINE PHOSPHATASE 74 U/L (45-117); BILIRUBIN,TOTAL 0.6 mg/dL (0.2-1.0); TROPONIN I < 0.015 ng/mL (0.000-0.045)
[2019-02-02 04:07] LABS: HEMOGLOBIN A1C 7.4 % (4.2-6.3)
--- NOTE | 2019-02-02 04:21 | NUR ---
PT STATED SHE IS UNABLE TO URINATE AT THSI TIME. ATTEMPTED TO STRAIGHT CATH PT, UNSUCCESSFUL. ERP UPDATED, WILL TRY AGAIN AFTER IV FLUIDS COMPLETED.
--- NOTE | 2019-02-02 04:23 | NUR ---
PT RESTING CALMLY WITH EYES CLOSED, OPENS EYES EASILY TO VERBAL RESPONSE, DENIES NEEDS AT THSI TIME, MONITORS IN PLACE, SIDERAILS UP X2, CALL LIGHT WITHIN REACH.
[2019-02-02 05:18] VITALS: BP 172/102
[2019-02-02] MEDS ORDERED: METOCLOPRAMIDE 5 MG/ML, 2ML IVPush PRN (06:00)
[2019-02-02] MEDS ORDERED: OXYcodone IR 5MG TABLET PO PRN (06:00)
[2019-02-02] MEDS ORDERED: BISACODYL 10 MG SUPP PR PRN (06:00)
[2019-02-02] MEDS ORDERED: ACETAMINOPHEN 325 MG TABLET PO PRN (06:00)
[2019-02-02] MEDS ORDERED: POLYETHYLENE GLYCOL 17 GM PACKET PO PRN (06:00)
[2019-02-02] MEDS ORDERED: ONDANSETRON ODT 4 MG PO PRN (06:00)
[2019-02-02] MEDS ORDERED: DEXTROSE 50%, 50ML SYRINGE IVPush PRN (06:00)
[2019-02-02] MEDS ORDERED: DOCUSATE 100 MG CAPSULE PO PRN (06:00)
[2019-02-02] MEDS ORDERED: DEXTROSE 4 GM TAB.CHEW PO PRN (06:00)
[2019-02-02] MEDS ORDERED: GLUCAGON 1 MG IM PRN (06:00)
[2019-02-02] MEDS: GABAPENTIN 100 MG CAPSULE PO SCH ×4 (06:30→19:48)
[2019-02-02] MEDS: CEFTRIAXONE PMX 2GM/50ML 50 ML IV SCH (06:38)
[2019-02-02] MEDS: SODIUM CHLORIDE 0.9% 1,000 ML IV SCH ×2 (06:39→13:17)
[2019-02-02] MEDS: ONDANSETRON 2MG/ML, 2ML IVPush PRN ×2 (06:39→08:07)
[2019-02-02 06:45] LABS: FREE T4 (FREE THYROXINE) 1.27 ng/dL (0.76-1.46)
[2019-02-02] MEDS ORDERED: cloniDINE 0.1MG PATCH TD SCH (07:30)
[2019-02-02 07:59] VITALS: BP 171/89
[2019-02-02] MEDS: hydrALAzine 20 MG/ML, 1ML IVPush PRN ×2 (08:07→20:04)
[2019-02-02 08:41] LABS: MICROSCOPIC AUTO
[2019-02-02 08:42] LABS: CULTURE INDICATED? YES
[2019-02-02] MEDS: PROMETHAZINE 25 MG/ML, 1ML IM PRN ×4 (08:58→20:05)
[2019-02-02] MEDS: morphine SULFATE 10 MG/ML, 1ML IVPush PRN ×5 (08:59→23:23)
[2019-02-02] MEDS: SERTRALINE 50MG TABLET PO SCH ×3 (09:00→19:48)
[2019-02-02] MEDS: PANTOPROZOLE 40MG TABLET PO SCH (09:00)
[2019-02-02] MEDS: HEPARIN 5,000 UNITS/ML, 1ML SQ SCH ×2 (09:00→16:19)
[2019-02-02] MEDS: ATENOLOL 100 MG TABLET PO SCH (09:00)
[2019-02-02] MEDS: BUPROPION SR 150 MG TABLET PO SCH ×2 (09:00→19:48)
[2019-02-02] MEDS: AMLODIPINE 5 MG TABLET PO SCH (09:00)
[2019-02-02] MEDS: SODIUM CHLORIDE FLUSH 10ML SYR IVF SCH ×2 (09:02→21:00)
[2019-02-02 09:05] VITALS: BP 162/82
[2019-02-02 09:20] LABS: HCG UR SG 1.015 (1.003-1.030)
[2019-02-02] MEDS: SCOPOLAMINE PATCH, 1.5MG PATCH.TD72 TD SCH (11:28)
[2019-02-02 11:54] LABS: TROPONIN I < 0.015 ng/mL (0.000-0.045)
[2019-02-02 14:25] VITALS: BP 166/89
[2019-02-02] MEDS: ATORVASTATIN 10 MG TABLET PO SCH (19:48)
[2019-02-02 19:49] VITALS: BP 193/104
[2019-02-02] MEDS ORDERED: SODIUM CHLORIDE 0.9% 1,000 ML IV SCH (21:00)
[2019-02-02 22:00] VITALS: BP 108/56
[2019-02-03] MEDS ORDERED: MORPHINE SULFATE 4 MG/ML, 1ML ONE ×2 (02:48→06:41)
[2019-02-03 02:51] VITALS: BP 124/66
[2019-02-03] MEDS: HEPARIN 5,000 UNITS/ML, 1ML SQ SCH ×3 (02:59→16:55)
[2019-02-03] MEDS: morphine SULFATE 10 MG/ML, 1ML IVPush PRN ×6 (02:59→20:40)
[2019-02-03] MEDS: PROMETHAZINE 25 MG/ML, 1ML IM PRN ×3 (03:06→23:03)
[2019-02-03 05:22] LABS: BASOPHILS # (AUTO) 0.04 x10^3/uL (0-0.1); BASOPHILS % (AUTO) 0 % (0-1); EOSINOPHILS % (AUTO) 0 % (1-7); LYMPHOCYTES # (AUTO) 1.53 x10^3/uL (1-3.4); LYMPHOCYTES % (AUTO) 11 % (22-44); MD NO; MEAN CORPUSCULAR HEMOGLOBIN 29.8 pg (27.0-34.8); MEAN CORPUSCULAR HGB CONC 32.4 g/dL (32.4-35.8); MEAN CORPUSCULAR VOLUME 91.9 fL (80-100); MEAN PLATELET VOLUME 9.9 fL (7.4-10.4); MONOCYTES # (AUTO) 1.16 x10^3/uL (0.2-0.8); MONOCYTES % (AUTO) 9 % (2-9); NEUTROPHILS # (AUTO) 10.77 x10^3/uL (1.8-6.8); NEUTROPHILS % (AUTO) 80 % (42-75); PLATELET COUNT 217 x10^3/uL (130-400); RED BLOOD COUNT 3.64 x10^6/uL (3.82-5.3); RED CELL DISTRIBUTION WIDTH 14.9 % (9.6-15.2)
[2019-02-03 05:27] LABS: ALBUMIN 3.1 g/dL (3.4-5.0); ANION GAP 10 mmol/L (5-15); CALCIUM 7.8 mg/dL (8.5-10.1); CHLORIDE 105 mmol/L (98-107)
[2019-02-03 05:32] LABS: ALANINE AMINOTRANSFERASE 120 U/L (12-78); ALKALINE PHOSPHATASE 73 U/L (45-117); BILIRUBIN,TOTAL 0.4 mg/dL (0.2-1.0); CHOL/HDL RATIO 2.3; CHOLESTEROL, TOTAL 160 mg/dL (140-239); CREATININE 1.93 mg/dL (0.55-1.02); HDL CHOL % 44 % (28-40); HDL CHOLESTEROL (DIRECT) 71 mg/dL (40-60); LDL CHOLESTEROL,CALCULATED 75 mg/dL (54-169); LDL/HDL RATIO 1.1 (0.5-3.0); TOTAL PROTEIN 5.8 g/dL (6.4-8.2); TRIGLYCERIDES 72 mg/dL (50-200); VLDL CHOLESTEROL 14 mg/dL (0-25)
[2019-02-03] MEDS: GABAPENTIN 100 MG CAPSULE PO SCH ×4 (06:00→21:29)
[2019-02-03] MEDS: CEFTRIAXONE PMX 2GM/50ML 50 ML IV SCH (06:38)
[2019-02-03 07:15] VITALS: BP 117/57
[2019-02-03] MEDS: ATENOLOL 100 MG TABLET PO SCH (09:28)
[2019-02-03] MEDS: BUPROPION SR 150 MG TABLET PO SCH ×2 (09:28→21:29)
[2019-02-03] MEDS: SERTRALINE 50MG TABLET PO SCH ×3 (09:28→21:29)
[2019-02-03] MEDS: AMLODIPINE 5 MG TABLET PO SCH (09:29)
[2019-02-03] MEDS: PANTOPROZOLE 40MG TABLET PO SCH (09:29)
[2019-02-03] MEDS: SODIUM CHLORIDE FLUSH 10ML SYR IVF SCH ×2 (09:29→21:29)
[2019-02-03 12:57] VITALS: BP 125/62
[2019-02-03 20:52] VITALS: BP 143/67
[2019-02-03] MEDS: INSULIN LISPRO 100 UNITS/ML, PEN SQ-INSULIN SCH (21:00)
[2019-02-03] MEDS: ATORVASTATIN 10 MG TABLET PO SCH (21:29)
[2019-02-04] MEDS: HEPARIN 5,000 UNITS/ML, 1ML SQ SCH ×3 (01:12→17:39)
[2019-02-04 02:15] VITALS: BP 154/75
[2019-02-04] MEDS: morphine SULFATE 10 MG/ML, 1ML IVPush PRN ×4 (05:24→19:29)
[2019-02-04] MEDS: CEFTRIAXONE PMX 2GM/50ML 50 ML IV SCH (05:24)
[2019-02-04] MEDS: GABAPENTIN 100 MG CAPSULE PO SCH ×4 (05:24→20:55)
[2019-02-04 05:37] LABS: ALANINE AMINOTRANSFERASE 84 U/L (12-78); ALBUMIN 3.2 g/dL (3.4-5.0); ANION GAP 6 mmol/L (5-15); CALCIUM 8.7 mg/dL (8.5-10.1); CHLORIDE 110 mmol/L (98-107); CREATININE 1.76 mg/dL (0.55-1.02)
[2019-02-04 05:39] LABS: ALKALINE PHOSPHATASE 71 U/L (45-117); BILIRUBIN,TOTAL 0.4 mg/dL (0.2-1.0); TOTAL PROTEIN 6.3 g/dL (6.4-8.2)
[2019-02-04 05:40] LABS: BASOPHILS # (AUTO) 0.09 x10^3/uL (0-0.1); BASOPHILS % (AUTO) 1 % (0-1); EOSINOPHILS # (AUTO) 0.14 x10^3/uL (0-0.4); EOSINOPHILS % (AUTO) 2 % (1-7); LYMPHOCYTES # (AUTO) 2.34 x10^3/uL (1-3.4); LYMPHOCYTES % (AUTO) 27 % (22-44); MD NO; MEAN CORPUSCULAR HEMOGLOBIN 29.3 pg (27.0-34.8); MEAN CORPUSCULAR HGB CONC 32.2 g/dL (32.4-35.8); MEAN PLATELET VOLUME 9.6 fL (7.4-10.4); MONOCYTES # (AUTO) 0.85 x10^3/uL (0.2-0.8); MONOCYTES % (AUTO) 10 % (2-9); NEUTROPHILS # (AUTO) 5.41 x10^3/uL (1.8-6.8); NEUTROPHILS % (AUTO) 61 % (42-75); PLATELET COUNT 246 x10^3/uL (130-400); RED BLOOD COUNT 4.08 x10^6/uL (3.82-5.3); RED CELL DISTRIBUTION WIDTH 15.4 % (9.6-15.2)
[2019-02-04 06:56] VITALS: BP 130/68
[2019-02-04] MEDS ORDERED: POTASSIUM CHLORIDE 20 MEQ in SODIUM CHLORIDE 0.9% 250 ML IV ONE (07:00)
[2019-02-04] MEDS: INSULIN LISPRO 100 UNITS/ML, PEN SQ-INSULIN SCH ×4 (07:00→20:55)
[2019-02-04] MEDS ORDERED: D5%-0.45% NACL 500 ML IV SCH (07:00)
[2019-02-04] MEDS: AMLODIPINE 5 MG TABLET PO SCH (09:56)
[2019-02-04] MEDS: PANTOPROZOLE 40MG TABLET PO SCH (09:56)
[2019-02-04] MEDS: SERTRALINE 50MG TABLET PO SCH ×3 (09:56→20:54)
[2019-02-04] MEDS: BUPROPION SR 150 MG TABLET PO SCH ×2 (09:56→20:54)
[2019-02-04] MEDS: ATENOLOL 100 MG TABLET PO SCH (09:56)
[2019-02-04] MEDS: SODIUM CHLORIDE FLUSH 10ML SYR IVF SCH ×2 (09:58→20:55)
[2019-02-04 13:11] VITALS: BP 144/72
[2019-02-04] MEDS: PROMETHAZINE 25 MG/ML, 1ML IM PRN (19:30)
[2019-02-04] MEDS: ATORVASTATIN 10 MG TABLET PO SCH (20:55)
[2019-02-04 21:05] VITALS: BP 172/79
[2019-02-04 23:30] VITALS: BP 189/104
[2019-02-04] MEDS: hydrALAzine 20 MG/ML, 1ML IVPush PRN (23:39)
[2019-02-05 00:06] VITALS: BP 149/83
[2019-02-05] MEDS: PROMETHAZINE 25 MG/ML, 1ML IM PRN ×2 (00:13→04:48)
[2019-02-05] MEDS: morphine SULFATE 10 MG/ML, 1ML IVPush PRN ×2 (00:25→04:48)
[2019-02-05] MEDS: HEPARIN 5,000 UNITS/ML, 1ML SQ SCH ×2 (00:26→09:09)
[2019-02-05] MEDS: CEFTRIAXONE PMX 2GM/50ML 50 ML IV SCH (04:48)
[2019-02-05] MEDS: GABAPENTIN 100 MG CAPSULE PO SCH ×2 (04:49→11:46)
[2019-02-05 06:14] LABS: ALANINE AMINOTRANSFERASE 161 U/L (12-78); ALBUMIN 3.1 g/dL (3.4-5.0); ANION GAP 9 mmol/L (5-15); CALCIUM 8.7 mg/dL (8.5-10.1); CHLORIDE 110 mmol/L (98-107)
[2019-02-05 06:17] LABS: ALKALINE PHOSPHATASE 101 U/L (45-117); BILIRUBIN,TOTAL 0.5 mg/dL (0.2-1.0); CREATININE 1.56 mg/dL (0.55-1.02); TOTAL PROTEIN 6.1 g/dL (6.4-8.2)
[2019-02-05] MEDS: INSULIN LISPRO 100 UNITS/ML, PEN SQ-INSULIN SCH ×2 (07:00→11:47)
[2019-02-05 08:20] VITALS: BP 114/64
[2019-02-05] MEDS: SCOPOLAMINE PATCH, 1.5MG PATCH.TD72 TD SCH (09:00)
[2019-02-05] MEDS: BUPROPION SR 150 MG TABLET PO SCH (09:08)
[2019-02-05] MEDS: ATENOLOL 100 MG TABLET PO SCH (09:08)
[2019-02-05] MEDS: PANTOPROZOLE 40MG TABLET PO SCH (09:08)
[2019-02-05] MEDS: AMLODIPINE 5 MG TABLET PO SCH (09:08)
[2019-02-05] MEDS: SERTRALINE 50MG TABLET PO SCH (09:08)
[2019-02-05] MEDS: SODIUM CHLORIDE FLUSH 10ML SYR IVF SCH (09:12)
[2019-02-05 14:48] VITALS: BP 133/70
[2019-02-05] MEDS ORDERED: TRAM-47 PO (14:59)
[2019-02-05] MEDS ORDERED: SCOP1PAT11 TD (14:59)
[2019-02-05] MEDS ORDERED: ONDA4TAB13 PO (15:08)
[2019-02-05] MEDS ORDERED: CEFD300C37 PO (15:08)
[2019-02-05] MEDS ORDERED: FLU VACC QS2019-20 36MOS UP/PF 0.5 ML IM-VACC ONE (16:00)
== END 2019-02-05 16:20 | disposition home or self-care (01) | DRG 690 ==
LOC: ED 04:40 → EDIP 04:57 → 4NW 05:05
PROVIDERS: ADMIT Internal Medicine; ATTEND Internal Medicine
DX: N12 Tubulo-interstitial nephritis, not specified as acute or chronic (principal); I13.0 Hypertensive heart and chronic kidney disease with heart failure and stage 1 through stage 4 chronic kidney disease, or unspecified chronic kidney disease; K31.84 Gastroparesis; I50.9 Heart failure, unspecified; N18.3 Chronic kidney disease, stage 3 (moderate); E86.0 Dehydration; E10.65 Type 1 diabetes mellitus with hyperglycemia; E10.43 Type 1 diabetes mellitus with diabetic autonomic (poly)neuropathy; E10.22 Type 1 diabetes mellitus with diabetic chronic kidney disease; Z96.41 Presence of insulin pump (external) (internal); R74.0 Nonspecific elevation of levels of transaminase and lactic acid dehydrogenase [LDH]; Z79.4 Long term (current) use of insulin; Z87.891 Personal history of nicotine dependence; Z72.89 Other problems related to lifestyle; Z90.49 Acquired absence of other specified parts of digestive tract; Z82.49 Family history of ischemic heart disease and other diseases of the circulatory system; Z79.899 Other long term (current) drug therapy; Z88.8 Allergy status to other drugs, medicaments and biological substances; Z23 Encounter for immunization
CPT/HCPCS: 36415; 36600; 71045; 76770; 80053; 80061; 81001; 81025; 82010; 82803; 82947; 82962; 83036; 83690; 83735; 83880; 84100; 84439; 84443; 84484; 85025; 87086; 90686; 93005; 93306; G0378; J0696; J1644; J2405; J2550; J3480; J0360; J2270; J7030; J7050

== ENCOUNTER 2019-04-05 15:51 | Emergency (ER) | payer OTHER ==
[~2019-04-05] VITALS: Ht 152.4 cm; Wt 45.4 kg
[~2019-04-05 15:51] MED LIST changes: +ONDA4TAB13 PO; +SCOP1PAT11 TD; +TRAM-47 PO
[2019-04-05 16:05] VITALS: BP 177/88
[2019-04-05] MEDS ORDERED: PROMETHAZINE 25 MG/ML, 1ML IM STA (16:11)
[2019-04-05] MEDS ORDERED: SODIUM CHLORIDE 0.9% 1,000ML IVBOLUS ONE (16:30)
[2019-04-05] MEDS ORDERED: SODIUM CHLORIDE FLUSH 10ML SYR IVF ONE (16:30)
[2019-04-05 16:34] LABS: BASOPHILS # (AUTO) 0.16 x10^3/uL (0-0.1); BASOPHILS % (AUTO) 1 % (0-1); EOSINOPHILS % (AUTO) 2 % (1-7); LYMPHOCYTES # (AUTO) 1.82 x10^3/uL (1-3.4); LYMPHOCYTES % (AUTO) 14 % (22-44); MD NO; MEAN CORPUSCULAR HGB CONC 32.9 g/dL (32.4-35.8); MEAN CORPUSCULAR VOLUME 88.1 fL (80-100); MEAN PLATELET VOLUME 9.1 fL (7.4-10.4); MONOCYTES % (AUTO) 7 % (2-9); NEUTROPHILS # (AUTO) 9.73 x10^3/uL (1.8-6.8); NEUTROPHILS % (AUTO) 76 % (42-75); PLATELET COUNT 296 x10^3/uL (130-400); RED BLOOD COUNT 4.85 x10^6/uL (3.82-5.3)
[2019-04-05 16:44] LABS: ALANINE AMINOTRANSFERASE 18 U/L (12-78); ALBUMIN 4.5 g/dL (3.4-5.0); ANION GAP 9 mmol/L (5-15); CALCIUM 10.1 mg/dL (8.5-10.1); CHLORIDE 105 mmol/L (98-107); CREATININE 1.88 mg/dL (0.55-1.02)
[2019-04-05 16:49] LABS: ALKALINE PHOSPHATASE 79 U/L (45-117); BILIRUBIN,TOTAL 0.5 mg/dL (0.2-1.0); TOTAL PROTEIN 8.2 g/dL (6.4-8.2)
[2019-04-05 17:18] LABS: ACETONE, SERUM Trace (10mg/dL) mg/dL (Negative)
== END 2019-04-05 19:33 ==
LOC: ED 19:31
DX: R10.9 Unspecified abdominal pain (principal); E10.9 Type 1 diabetes mellitus without complications; I50.9 Heart failure, unspecified
CPT/HCPCS: 36415; 80053; 82010; 83690; 83880; 84703; 85025; 99283

== ENCOUNTER 2020-10-31 06:53 | Day surgery (SDC) | payer MEDICARE, OTHER ==
[~2020-10-31] VITALS: Ht 152.4 cm; Wt 49.6 kg
[~2020-10-31 06:53] MED LIST changes: -PANT40TA5 PO; +PANT40TA6 PO; -SCOP1PAT11 TD; +SCOP1PAT13 TD
[2020-10-31] MEDS ORDERED: BUPR150T73 PO (07:49)
[2020-10-31] MEDS ORDERED: METO10TA2 PO (07:49)
[2020-10-31] MEDS ORDERED: ATEN50TA41 PO (07:49)
[2020-10-31] MEDS ORDERED: AMLO-150 PO (07:49)
[2020-10-31] MEDS ORDERED: SERT50TA28 PO (07:49)
[2020-10-31] MEDS ORDERED: FURO20TA3 PO (07:49)
[2020-10-31] MEDS ORDERED: ATOR10TA9 PO (07:49)
[2020-10-31] MEDS ORDERED: PROM25TA10 PO (07:49)
[2020-10-31] MEDS ORDERED: GABA300C PO (07:49)
[2020-10-31] MEDS ORDERED: LEVO50TA5 PO (07:49)
[2020-10-31] MEDS ORDERED: insulin pump (07:49)
[2020-10-31] MEDS ORDERED: PANT40TA6 PO (07:49)
[2020-10-31] MEDS ORDERED: CHLORHEXIDINE 15 ML UDC PO ONE (08:00)
[2020-10-31] MEDS ORDERED: LACTATED RINGERS 1,000 ML IV SCH (08:00)
[2020-10-31] MEDS ORDERED: ROCURONIUM 10MG/ML,5ML ONE (08:03)
[2020-10-31] MEDS ORDERED: DEXAMETHASONE 4 MG/ML, 1ML ONE (08:03)
[2020-10-31] MEDS ORDERED: PROPOFOL 10 MG/ML, 20ML ONE (08:03)
[2020-10-31] MEDS ORDERED: NEOSTIGMINE 1 MG/ML, 10ML ONE (08:03)
[2020-10-31] MEDS ORDERED: CEFAZOLIN 1,000 MG ONE (08:03)
[2020-10-31] MEDS ORDERED: ONDANSETRON 2MG/ML, 2ML ONE (08:03)
[2020-10-31] MEDS ORDERED: GLYCOPYRROLATE 0.2MG/1ML, 5ML ONE (08:03)
[2020-10-31 08:05] VITALS: BP 152/74
[2020-10-31] MEDS ORDERED: MIDAZOLAM 1 MG/ML, 2ML ONE (08:06)
[2020-10-31] MEDS ORDERED: FENTANYL PF 250 MCG/5ML ONE (08:09)
[2020-10-31 08:25] LABS: ALBUMIN 3.8 g/dL (3.4-5.0); ANION GAP 8 mmol/L (5-15); CALCIUM 8.6 mg/dL (8.5-10.1); CHLORIDE 100 mmol/L (98-107)
[2020-10-31 08:28] LABS: ALANINE AMINOTRANSFERASE 25 U/L (12-78); ALKALINE PHOSPHATASE 101 U/L (45-117); BILIRUBIN,TOTAL 0.4 mg/dL (0.2-1.0); CREATININE 1.95 mg/dL (0.55-1.02)
[2020-10-31 08:38] LABS: INTERNATIONAL NORMALIZED RATIO 0.94 (0.93-1.1); PROTHROMBIN TIME 10.1 Seconds (9.6-11.5)
[2020-10-31 08:39] LABS: BASOPHILS % (AUTO) 1 % (0-1); EOSINOPHILS % (AUTO) 3 % (1-7); LYMPHOCYTES % (AUTO) 17 % (22-44); MEAN CORPUSCULAR HEMOGLOBIN 30.2 pg (27.0-34.8); MEAN PLATELET VOLUME 9.2 fL (7.4-10.4); MONOCYTES % (AUTO) 8 % (2-9); NEUTROPHILS % (AUTO) 72 % (42-75); PLATELET COUNT 258 x10^3/uL (130-400); RED CELL DISTRIBUTION WIDTH 14.2 % (9.6-15.2)
[2020-10-31] MEDS ORDERED: EPINEPHRINE 1 MG/ML, 1ML ONE (08:48)
[2020-10-31] MEDS ORDERED: BUPIVACAINE/PF 0.5% ONE (08:48)
[2020-10-31] MEDS ORDERED: HYDR-2214 PO (10:04)
[2020-10-31] MEDS ORDERED: FENTANYL PF 100 MCG/2ML ONE (10:19)
[2020-10-31] MEDS ORDERED: OXYcodone 5 MG/5 ML ORAL.SOL UDC ONE (10:19)
[2020-10-31] MEDS ORDERED: ACETAMINOPHEN 650 MG/20.3 ML UDC ONE (10:19)
[2020-10-31] MEDS ORDERED: PROMETHAZINE 25 MG/ML, 1ML ONE (10:25)
[2020-10-31] MEDS ORDERED: OXYcodone 5 MG/5 ML ORAL.SOL UDC PO PRN (10:30)
[2020-10-31] MEDS ORDERED: PROMETHAZINE 25 MG/ML, 1ML IVPush PRN (10:30)
[2020-10-31] MEDS ORDERED: LABETALOL 5MG/ML, 20ML IV PRN (10:30)
[2020-10-31] MEDS ORDERED: MEPERIDINE/PF 25MG/0.5ML IVPush PRN (10:30)
[2020-10-31] MEDS ORDERED: HYDROmorphone 1 MG/ML, 1ML INJ IVPush PRN (10:30)
[2020-10-31] MEDS ORDERED: FENTANYL PF 100 MCG/2ML IV PRN (10:30)
[2020-10-31] MEDS ORDERED: KETOROLAC 30 MG/1 ML IV PRN (10:30)
== END 2020-10-31 12:30 | disposition home or self-care (01) ==
LOC: OUT 06:53
PROVIDERS: ATTEND Surgery
DX: C43.72 Malignant melanoma of left lower limb, including hip (principal); I10 Essential (primary) hypertension; E11.9 Type 2 diabetes mellitus without complications; I42.9 Cardiomyopathy, unspecified; F41.9 Anxiety disorder, unspecified; F32.9 Major depressive disorder, single episode, unspecified; M19.90 Unspecified osteoarthritis, unspecified site; F12.90 Cannabis use, unspecified, uncomplicated; Z79.01 Long term (current) use of anticoagulants; Z79.4 Long term (current) use of insulin; Z79.890 Hormone replacement therapy; Z79.899 Other long term (current) drug therapy; Z87.891 Personal history of nicotine dependence; Z88.8 Allergy status to other drugs, medicaments and biological substances; Z82.61 Family history of arthritis
CPT/HCPCS: 14020; 80053; 82962; 85025; 85610; 85730; 88307; 88342; 93005; J0171; J0690; J1100; J2250; J2405; J2550; J2704; J2710; J3010; J7120